=== PATIENT | female | born 1980 | race Asian ===

== ENCOUNTER 2017-11-14 11:30 | Inpatient (IN) | payer BC ==
[2017-11-14] MEDS ORDERED: ceFAZolin 2 GM in Premix Bag 1 BAG IV ONE (11:59)
[2017-11-14] MEDS ORDERED: Sodium Chloride 0.9% 2.5 ML Syringe FLUSH PRN (11:59)
[2017-11-14] MEDS ORDERED: Sodium Chloride 0.9% 10 ML Syringe FLUSH PRN (11:59)
[2017-11-14] MEDS ORDERED: Oxytocin/0.9 % Sodium Chloride 30 UNIT/500 ML BAG IV SCH (12:00)
[2017-11-14] MEDS ORDERED: Citric Acid/Sodium Citrate Solution 30 ML Cup PO SCH (12:00)
[2017-11-14] MEDS: Lactated Ringers 1,000 ML IV SCH ×2 (13:50→19:13)
[2017-11-14] MEDS ORDERED: Ampicillin 2 GM in Sodium Chloride 0.9% 100 ML IV ONE (15:30)
[2017-11-14] MEDS ORDERED: Ondansetron 4 MG/2 ML SDV ONE (16:14)
[2017-11-14] MEDS ORDERED: ePHEDrine 50 MG/ML SDV ONE (16:14)
[2017-11-14] MEDS ORDERED: Morphine PF 1 MG/ML Amp ONE (16:15)
[2017-11-14] MEDS ORDERED: Oxytocin/0.9 % Sodium Chloride 30 UNIT/500 ML BAG ONE (17:00)
[2017-11-14] MEDS ORDERED: ceFAZolin/Dextrose,Iso-Osmotic 2 GM/50 ML Duplex Bag IV ONE (18:00)
--- NOTE | 2017-11-14 18:24 | PCM.PREANE ---
Preanesthetic Assessment - Anesthesia/Transfusion/Family Hx Anesthesia History: No Prior Anesthesia Family History of Anesthesia Reaction: No Intubation History: Unknown - Review of Systems General: No Symptoms Pulmonary: No Symptoms Cardiovascular: No Symptoms Gastrointestinal: No Symptoms Neurological: No Symptoms Other: Reports: None - Physical Assessment Height: 1.6 m Weight: 69.853 kg ASA Class: 2 Mental Status: Alert & Oriented x3 Airway Class: Mallampati = 2 Dentition: Reports: Normal Dentition Thyro-Mental Finger Breadths: 3 Mouth Opening Finger Breadths: 3 ROM/Head Extension: Full Lungs: Clear to Auscultation, Normal Respiratory Effort Cardiovascular: Regular Rate, Regular Rhythm - Lab Values: Laboratory Last Values WBC 9.91 K/uL (4.0-11.0) 11/14/17 13:22 RBC 4.99 M/uL (4.30-5.90) 11/14/17 13:22 Hgb 13.7 g/dL (12.0-16.0) 11/14/17 13:22 Hct 40.5 % (36.0-46.0) 11/14/17 13:22 MCV 81.2 fL (80.0-98.0) 11/14/17 13:22 MCH 27.5 pg (27.0-32.0) 11/14/17 13:22 MCHC 33.8 g/dL (31.0-37.0) 11/14/17 13:22 RDW Std Deviation 43.5 fl (28.0-62.0) 11/14/17 13:22 RDW Coeff of Nathalia 15 % (11.0-15.0) 11/14/17 13:22 Plt Count 183 K/uL (150-400) 11/14/17 13:22 MPV 10.30 fL (7.40-12.00) 11/14/17 13:22 Nucleated RBC % 0.0 /100WBC 11/14/17 13:22 Nucleated RBCs # 0 K/uL 11/14/17 13:22 Blood Type O POSITIVE 11/14/17 13:22 Antibody Screen NEGATIVE 11/14/17 13:22 - Allergies Allergies/Adverse Reactions: Allergies Allergy/AdvReac Type Severity Reaction Status Date / Time No Known Allergies Allergy Verified 11/11/17 10:12 - Blood Blood Available: No - Anesthesia Plan Pre-Op Medication Ordered: None - Acknowledgements Anesthesia Type Planned: Spinal Pt an Appropriate Candidate for the Planned Anesthesia: Yes Alternatives and Risks of Anesthesia Discussed w Pt/Guardian: Yes Pt/Guardian Understands and Agrees with Anesthesia Plan: Yes PreAnesthesia Questionnaire - Past Health History Medical/Surgical History: Denies Medical/Surgical History [employer] VERTICAL History: Reports: - HOME MEDS Home Medications: Home Meds Cyanocobalamin (Vitamin B-12) [Vitamin B-12] 3,000 mcg PO DAILY 11/11/17 [ History] Doxylamine/Pyridoxine HCl [Diclegis Dr 10-10 mg Tablet] 2 tab PO BEDTIME [History] Omeprazole Magnesium [Prilosec Otc] 20 mg PO DAILY 11/11/17 [History] PNV95/Ferrous Fumarate/FA [ Vitamin Tablet] 1 tab PO DAILY 11/11/17 [ History] - CURRENT (IN HOUSE) MEDS Current Meds: Current Medications Citric Acid/Sodium Citrate (Bicitra Solution) 30 ml PO .ONCE [facility] Lactated Ringer's (Ringers, Lactated) 1,000 mls @ 500 mls/hr IV .BOLUS [facility] Last Admin: 11/14/17 13:50 Dose: 50 mls/hr Oxytocin/Sodium Chloride (Oxytocin 30 Unit/500 Ml-Ns) 30 unit in 500 mls @ 250 mls/hr IV TITRATE [facility] Sodium Chloride (Saline Flush) 10 ml FLUSH ASDIRECTED PRN PRN Reason: Keep Vein Open Sodium Chloride (Saline Flush) 2.5 ml FLUSH ASDIRECTED PRN PRN Reason: Keep Vein Open Discontinued Medications Cefazolin Sodium/Dextrose (Ancef) Confirm Administered Dose 2 gm IV .STK-MED ONE Stop: 11/14/17 18:01 Ephedrine Sulfate (Ephedrine Sulfate) Confirm Administered Dose 50 mg .ROUTE .STK-MED ONE Stop: 11/14/17 16:15 Cefazolin Sodium/Dextrose 2 gm (/ Premix) 50 mls @ 100 mls/hr IV ONETIME ONE Stop: 11/14/17 12:28 Ampicillin Sodium 2 gm/ Sodium (Chloride) 100 mls @ 200 mls/hr IV ONETIME ONE Stop: 11/14/17 15:59 Last Admin: 11/14/17 15:38 Dose: 200 mls/hr Cefazolin Sodium/Dextrose (Ancef) Confirm Administered Dose 50 mls @ as directed .ROUTE .STK-MED ONE Stop: 11/14/17 16:19 Oxytocin/Sodium Chloride (Oxytocin 30 Unit/500 Ml-Ns) Confirm Administered Dose 30 unit in 500 mls @ as directed .ROUTE .STK-MED ONE Stop: 11/14/17 17:01 Morphine Sulfate (Duramorph Pf) Confirm Administered Dose 1 mg .ROUTE .STK-MED ONE Stop: 11/14/17 16:16 Ondansetron HCl (Zofran) Confirm Administered Dose 4 mg .ROUTE .STK-MED ONE Stop: 11/14/17 16:15
[2017-11-14] MEDS ORDERED: Phenylephrine/Normal Saline 100 MCG/ML 10 ML Syringe ONE (19:29)
[2017-11-14] MEDS ORDERED: diphenhydrAMINE 50 MG/ML SDV IVPUSH PRN ×2 (20:16→21:52)
[2017-11-14] MEDS ORDERED: Nalbuphine 10 MG/1 ML Vial IVPUSH PRN (20:16)
[2017-11-14] MEDS ORDERED: Naloxone 0.4 MG/ML Syringe IVPUSH PRN (20:16)
[2017-11-14] MEDS ORDERED: fentaNYL 100 MCG/2 ML SDV IVPUSH PRN (20:17)
[2017-11-14] MEDS ORDERED: Acetaminophen/oxyCODONE 325-5 MG Tab PO PRN ×2 (20:17→21:52)
[2017-11-14] MEDS ORDERED: Oxytocin 10 Units/1 ML SDV ONE (20:54)
--- NOTE | 2017-11-14 21:29 | PCM.POSTAN ---
POST ANESTHESIA ASSESSMENT - MENTAL STATUS Mental Status: Alert, Oriented - RESPIRATORY Respiratory Status: Respiratory Rate WNL, Airway Patent, O2 Saturation Stable - CARDIOVASCULAR CV Status: Pulse Rate WNL, Blood Pressure Stable - GASTROINTESTINAL GI Status: No Symptoms - PAIN Pain Score: 0 - POST OP HYDRATION Hydration Status: Adequate & Stable
[2017-11-14] MEDS ORDERED: Ondansetron 4 MG/2 ML SDV IV PRN (21:52)
[2017-11-14] MEDS ORDERED: Lanolin 100% Cream 7 GM Tube TOP PRN (21:52)
[2017-11-14] MEDS ORDERED: Bisacodyl 10 MG Supp RECTAL PRN (21:52)
[2017-11-14] MEDS ORDERED: Ketorolac 30 MG/ML SDV IVPUSH SCH (22:00)
[2017-11-14] MEDS ORDERED: Lactated Ringers 1,000 ML IV SCH (22:00)
[2017-11-14] MEDS ORDERED: Acetaminophen 1,000 MG in Premix Bag 1 BAG IV ONE (22:10)
--- NOTE | 2017-11-14 22:29 | PCM.OPNOTE ---
- General Post-Op/Procedure Note Date of Surgery/Procedure: 11/14/17 Operative Procedure(s): Primary Lower transverse Findings: Uterus with subserosa hematoma 3cm X 2cm Live male delivered at 1954 7/9 Wt 3440g , 3VC noted. Uterus closed in 2 layers 4 figure of eight suture placed for hemostasis Surgicel placed around incison and bladder base for hemostasis Normal right and left fallopian tubes and ovaries Pre Op Diagnosis: 37 yo @ 37 weeks with third trimester bleeding , GBS positive , Declining vaginal delivery Post-Op Diagnosis: same Anesthesia Technique: Spinal Primary Surgeon: Amanda Estrada Anesthesia Provider: Madison Mckeon Pathology: Placenta Fluid Replacement, Intraop: 2,000 Output, Urine Amount: 150 EBL in mLs: 800 Condition: Good Free Text/Narrative:: Intake & Output 11/14/17 11/14/17 11/14/17 06:59 14:59 22:59 Intake Total 1000 Output Total 300 Balance 700
--- NOTE | 2017-11-15 09:41 | PCM.PNPP ---
<Marisa Bennett - Last Filed: 11/15/17 09:38> - General Info Date of Service: 11/15/17 Functional Status: Reports: Pain Controlled, Tolerating Diet, Ambulating, Urinating - Review of Systems General: Denies: Fever, Weakness Pulmonary: Denies: Shortness of Breath, Pleuritic Chest Pain, Cough Cardiovascular: Denies: Chest Pain, Palpitations, Dyspnea on Exertion Gastrointestinal: Denies: Abdominal Pain Genitourinary: Denies: Dysuria - General Info Date of Service: 11/15/17 - Patient Data Vital Signs - Most Recent: Last Vital Signs Temp 36.1 C 11/15/17 02:00 Pulse 87 11/15/17 02:00 Resp 20 11/15/17 02:00 BP 105/68 11/15/17 02:00 Pulse Ox 99 11/15/17 02:00 Weight - Most Recent: 69.853 kg I&O - Last 24 Hours: Intake & Output 11/14/17 11/15/17 11/15/17 22:59 06:59 14:59 Intake Total 3000 Output Total 450 250 Balance 2550 -250 Lab Results - Last 24 Hours: Laboratory Results - last 24 hr 11/14/17 11/14/17 11/14/17 Range/Units 13:22 13:22 19:55 WBC 9.91 (4.0-11.0) K/uL RBC 4.99 (4.30-5.90) M/uL Hgb 13.7 (12.0-16.0) g/dL Hct 40.5 (36.0-46.0) % MCV 81.2 (80.0-98.0) fL MCH 27.5 (27.0-32.0) pg MCHC 33.8 (31.0-37.0) g/dL RDW Std Deviation 43.5 (28.0-62.0) fl RDW Coeff of Nathalia 15 (11.0-15.0) % Plt Count 183 (150-400) K/uL MPV 10.30 (7.40-12.00) fL Nucleated RBC % 0.0 /100WBC Nucleated RBCs # 0 K/uL INR APTT (18.6-31.3) SEC Fibrinogen (215-411) mg/dL Cord ABG pH (7.18-7.38) Cord ABG Base Excess (-10--2) Cord VBG pH 7.351 (7.25-7.45) Cord VBG Base Excess -3 (-10--2) Blood Type O POSITIVE Antibody Screen NEGATIVE 11/14/17 11/14/17 11/14/17 Range/Units 19:55 22:28 22:28 WBC 13.36 H (4.0-11.0) K/uL RBC 4.25 L (4.30-5.90) M/uL Hgb 11.6 L (12.0-16.0) g/dL Hct 34.7 L (36.0-46.0) % MCV 81.6 (80.0-98.0) fL MCH 27.3 (27.0-32.0) pg MCHC 33.4 (31.0-37.0) g/dL RDW Std Deviation 44.4 (28.0-62.0) fl RDW Coeff of Nathalia 15 (11.0-15.0) % Plt Count 162 (150-400) K/uL MPV 10.00 (7.40-12.00) fL Nucleated RBC % 0.0 /100WBC Nucleated RBCs # 0 K/uL INR 0.92 APTT 28.6 (18.6-31.3) SEC Fibrinogen 521 H (215-411) mg/dL Cord ABG pH 7.283 (7.18-7.38) Cord ABG Base Excess -7 (-10--2) Cord VBG pH (7.25-7.45) Cord VBG Base Excess (-10--2) Blood Type Antibody Screen Med Orders - Current: Current Medications Bisacodyl (Dulcolax) 10 mg RECTAL .ONCE PRN PRN Reason: Constipation Citric Acid/Sodium Citrate (Bicitra Solution) 30 ml PO .ONCE [facility] Last Admin: 11/14/17 19:14 Dose: 30 ml Diphenhydramine HCl (Benadryl) 25 mg IVPUSH Q4H PRN PRN Reason: Itching Stop: 11/15/17 20:16 Last Admin: 11/14/17 21:32 Dose: 25 mg Diphenhydramine HCl (Benadryl) 25 mg IVPUSH Q6H PRN PRN Reason: Itching or Nausea Docusate Sodium (Colace) 100 mg PO BID [facility] Emollient Ointment (Lansinoh Hpa) 0 gm TOP ASDIRECTED PRN PRN Reason: Sore Nipples Fentanyl (Sublimaze) 25 - 50 mcg IVPUSH Q30M PRN PRN Reason: Pain Lactated Ringer's (Ringers, Lactated) 1,000 mls @ 500 mls/hr IV .BOLUS [facility] Last Admin: 11/14/17 19:13 Dose: 999 mls/hr Oxytocin/Sodium Chloride (Oxytocin 30 Unit/500 Ml-Ns) 30 unit in 500 mls @ 250 mls/hr IV TITRATE [facility] Lactated Ringer's (Ringers, Lactated) 1,000 mls @ 125 mls/hr IV ASDIRECTED [facility] Last Admin: 11/15/17 02:02 Dose: 125 mls/hr Acetaminophen 1,000 mg/ Premix 100 mls @ 400 mls/hr IV Q6H [facility] Ibuprofen (Motrin) 800 mg PO Q8H PRN PRN Reason: mild pain or fever Nalbuphine HCl (Nubain) 5 mg IVPUSH Q3H PRN PRN Reason: Pruritis Stop: 11/15/17 20:16 Naloxone HCl (Narcan) 0.1 mg IVPUSH ONETIME PRN PRN Reason: Other Stop: 11/15/17 20:17 Ondansetron HCl (Zofran) 4 mg IV Q4H PRN PRN Reason: Nausea/Vomiting Oxycodone/Acetaminophen (Percocet 325-5 Mg) 1 - 2 tab PO Q6H PRN PRN Reason: Pain Stop: 11/16/17 14:00 Oxycodone/Acetaminophen (Percocet 325-5 Mg) 1 tab PO Q4H PRN PRN Reason: Pain (moderate 4-6) Oxycodone/Acetaminophen (Percocet 325-5 Mg) 2 tab PO Q4H PRN PRN Reason: Pain (moderate 4-6) Sodium Chloride (Saline Flush) 10 ml FLUSH ASDIRECTED PRN PRN Reason: Keep Vein Open Sodium Chloride (Saline Flush) 2.5 ml FLUSH ASDIRECTED PRN PRN Reason: Keep Vein Open Discontinued Medications Cefazolin Sodium/Dextrose (Ancef) Confirm Administered Dose 2 gm IV .STK-MED ONE Stop: 11/14/17 18:01 Ephedrine Sulfate (Ephedrine Sulfate) Confirm Administered Dose 50 mg .ROUTE .STK-MED ONE Stop: 11/14/17 16:15 Cefazolin Sodium/Dextrose 2 gm (/ Premix) 50 mls @ 100 mls/hr IV ONETIME ONE Stop: 11/14/17 12:28 Ampicillin Sodium 2 gm/ Sodium (Chloride) 100 mls @ 200 mls/hr IV ONETIME ONE Stop: 11/14/17 15:59 Last Admin: 11/14/17 15:38 Dose: 200 mls/hr Cefazolin Sodium/Dextrose (Ancef) Confirm Administered Dose 50 mls @ as directed .ROUTE .STK-MED ONE Stop: 11/14/17 16:19 Oxytocin/Sodium Chloride (Oxytocin 30 Unit/500 Ml-Ns) Confirm Administered Dose 30 unit in 500 mls @ as directed .ROUTE .STK-MED ONE Stop: 11/14/17 17:01 Acetaminophen (Ofirmev) Confirm Administered Dose 100 mls @ as directed IV .STK- MED ONE Stop: 11/14/17 21:05 Acetaminophen 1,000 mg/ Premix 100 mls @ 400 mls/hr IV NOW ONE Stop: 11/14/17 22:24 Ketorolac Tromethamine (Toradol) 30 mg IVPUSH Q6H [facility] Stop: 11/15/17 22:01 Morphine Sulfate (Duramorph Pf) Confirm Administered Dose 1 mg .ROUTE .STK-MED ONE Stop: 11/14/17 16:16 Ondansetron HCl (Zofran) Confirm Administered Dose 4 mg .ROUTE .STK-MED ONE Stop: 11/14/17 16:15 Oxytocin (Pitocin) Confirm Administered Dose 20 unit .ROUTE .STK-MED ONE Stop: 11/14/17 20:55 Phenylephrine HCl (Phenylephrine In Ns 100 Mcg/Ml) Confirm Administered Dose 1 mg .ROUTE .STK-MED ONE Stop: 11/14/17 19:30 - Interaction Disposition, : Scalf in Room with Family Infant Interaction: Holding Infant Infant Feeding: Breastfed ; Nursed Well Support Person: - Recovery Exam Fundal Tone: Firm Fundal Level: At Umbilicus Fundal Placement: Midline Lochia Amount: Scant Lochia Color: Rubra/Red Perineum Description: Intact, Minimal Bruising/Swelling Episiotomy/Laceration: None Bladder Status: Indwelling Catheter in Place Urinary Elimination: Indwelling Catheter - Exam General: Alert, Oriented Neck: Supple Lungs: Clear to Auscultation, Normal Respiratory Effort Cardiovascular: Regular Rate, Regular Rhythm GI/Abdominal Exam: Normal Bowel Sounds, Soft, Non-Tender, No Distention Extremities: Normal Inspection, Pedal Edema (trace) - Problem List & Annotations (1) delivery delivered SNOMED Code(s): 104345525 Code(s): O82 - ENCOUNTER FOR DELIVERY WITHOUT INDICATION Status: Acute Current Visit: Yes - Problem List Review Problem List Initiated/Reviewed/Updated: Yes - Assessment Assessment:: POD# 1 s/p PLTCS due to bleeding from low-lying placenta. Minimal pain and lochia. Work on breast feeding today and anticipate discharge home tomorrow. - Plan Plan:: Continue routine post-op cares. <Clare Hernandez - Last Filed: 11/15/17 15:10> - Patient Data Vital Signs - Most Recent: Last Vital Signs Temp 36.1 C 11/15/17 02:00 Pulse 87 11/15/17 02:00 Resp 20 11/15/17 11:28 BP 105/68 11/15/17 02:00 Pulse Ox 99 11/15/17 02:00 I&O - Last 24 Hours: Intake & Output 11/15/17 11/15/17 11/15/17 06:59 14:59 22:59 Output Total 250 Balance -250 Lab Results - Last 24 Hours: Laboratory Results - last 24 hr 11/14/17 11/14/17 11/14/17 Range/Units 19:55 19:55 22:28 WBC 13.36 H (4.0-11.0) K/uL RBC 4.25 L (4.30-5.90) M/uL Hgb 11.6 L (12.0-16.0) g/dL Hct 34.7 L (36.0-46.0) % MCV 81.6 (80.0-98.0) fL MCH 27.3 (27.0-32.0) pg MCHC 33.4 (31.0-37.0) g/dL RDW Std Deviation 44.4 (28.0-62.0) fl RDW Coeff of Nathalia 15 (11.0-15.0) % Plt Count 162 (150-400) K/uL MPV 10.00 (7.40-12.00) fL Nucleated RBC % 0.0 /100WBC Nucleated RBCs # 0 K/uL INR APTT (18.6-31.3) SEC Fibrinogen (215-411) mg/dL Cord ABG pH 7.283 (7.18-7.38) Cord ABG Base Excess -7 (-10--2) Cord VBG pH 7.351 (7.25-7.45) Cord VBG Base Excess -3 (-10--2) 11/14/17 11/15/17 Range/Units 22:28 07:15 WBC (4.0-11.0) K/uL RBC (4.30-5.90) M/uL Hgb 10.0 L (12.0-16.0) g/dL Hct 29.7 L (36.0-46.0) % MCV (80.0-98.0) fL MCH (27.0-32.0) pg MCHC (31.0-37.0) g/dL RDW Std Deviation (28.0-62.0) fl RDW Coeff of Nathalia (11.0-15.0) % Plt Count (150-400) K/uL MPV (7.40-12.00) fL Nucleated RBC % /100WBC Nucleated RBCs # K/uL INR 0.92 APTT 28.6 (18.6-31.3) SEC Fibrinogen 521 H (215-411) mg/dL Cord ABG pH (7.18-7.38) Cord ABG Base Excess (-10--2) Cord VBG pH (7.25-7.45) Cord VBG Base Excess (-10--2) Med Orders - Current: Current Medications Bisacodyl (Dulcolax) 10 mg RECTAL .ONCE PRN PRN Reason: Constipation Citric Acid/Sodium Citrate (Bicitra Solution) 30 ml PO .ONCE [facility] Last Admin: 11/14/17 19:14 Dose: 30 ml Diphenhydramine HCl (Benadryl) 25 mg IVPUSH Q4H PRN PRN Reason: Itching Stop: 11/15/17 20:16 Last Admin: 11/14/17 21:32 Dose: 25 mg Diphenhydramine HCl (Benadryl) 25 mg IVPUSH Q6H PRN PRN Reason: Itching or Nausea Docusate Sodium (Colace) 100 mg PO BID [facility] Last Admin: 11/15/17 15:01 Dose: Not Given Emollient Ointment (Lansinoh Hpa) 0 gm TOP ASDIRECTED PRN PRN Reason: Sore Nipples Fentanyl (Sublimaze) 25 - 50 mcg IVPUSH Q30M PRN PRN Reason: Pain Lactated Ringer's (Ringers, Lactated) 1,000 mls @ 500 mls/hr IV .BOLUS [facility] Last Admin: 11/14/17 19:13 Dose: 999 mls/hr Oxytocin/Sodium Chloride (Oxytocin 30 Unit/500 Ml-Ns) 30 unit in 500 mls @ 250 mls/hr IV TITRATE [facility] Lactated Ringer's (Ringers, Lactated) 1,000 mls @ 125 mls/hr IV ASDIRECTED [facility] Last Admin: 11/15/17 02:02 Dose: 125 mls/hr Ibuprofen (Motrin) 800 mg PO Q8H PRN PRN Reason: mild pain or fever Nalbuphine HCl (Nubain) 5 mg IVPUSH Q3H PRN PRN Reason: Pruritis Stop: 11/15/17 20:16 Naloxone HCl (Narcan) 0.1 mg IVPUSH ONETIME PRN PRN Reason: Other Stop: 11/15/17 20:17 Ondansetron HCl (Zofran) 4 mg IV Q4H PRN PRN Reason: Nausea/Vomiting Oxycodone/Acetaminophen (Percocet 325-5 Mg) 1 - 2 tab PO Q6H PRN PRN Reason: Pain Stop: 11/16/17 14:00 Oxycodone/Acetaminophen (Percocet 325-5 Mg) 1 tab PO Q4H PRN PRN Reason: Pain (moderate 4-6) Oxycodone/Acetaminophen (Percocet 325-5 Mg) 2 tab PO Q4H PRN PRN Reason: Pain (moderate 4-6) Sodium Chloride (Saline Flush) 10 ml FLUSH ASDIRECTED PRN PRN Reason: Keep Vein Open Sodium Chloride (Saline Flush) 2.5 ml FLUSH ASDIRECTED PRN PRN Reason: Keep Vein Open Discontinued Medications Cefazolin Sodium/Dextrose (Ancef) Confirm Administered Dose 2 gm IV .STK-MED ONE Stop: 11/14/17 18:01 Ephedrine Sulfate (Ephedrine Sulfate) Confirm Administered Dose 50 mg .ROUTE .STK-MED ONE Stop: 11/14/17 16:15 Cefazolin Sodium/Dextrose 2 gm (/ Premix) 50 mls @ 100 mls/hr IV ONETIME ONE Stop: 11/14/17 12:28 Last Admin: 11/15/17 15:01 Dose: Not Given Ampicillin Sodium 2 gm/ Sodium (Chloride) 100 mls @ 200 mls/hr IV ONETIME ONE Stop: 11/14/17 15:59 Last Admin: 11/14/17 15:38 Dose: 200 mls/hr Cefazolin Sodium/Dextrose (Ancef) Confirm Administered Dose 50 mls @ as directed .ROUTE .STK-MED ONE Stop: 11/14/17 16:19 Oxytocin/Sodium Chloride (Oxytocin 30 Unit/500 Ml-Ns) Confirm Administered Dose 30 unit in 500 mls @ as directed .ROUTE .STK-MED ONE Stop: 11/14/17 17:01 Last Admin: 11/15/17 15:01 Dose: Not Given Acetaminophen (Ofirmev) Confirm Administered Dose 100 mls @ as directed IV .STK- MED ONE Stop: 11/14/17 21:05 Acetaminophen 1,000 mg/ Premix 100 mls @ 400 mls/hr IV NOW ONE Stop: 11/14/17 22:24 Last Admin: 11/15/17 15:02 Dose: Not Given Acetaminophen 1,000 mg/ Premix 100 mls @ 400 mls/hr IV Q6H [facility] Last Admin: 11/15/17 15:03 Dose: Not Given Ketorolac Tromethamine (Toradol) 30 mg IVPUSH Q6H [facility] Stop: 11/15/17 22:01 Last Admin: 11/15/17 15:02 Dose: Not Given Morphine Sulfate (Duramorph Pf) Confirm Administered Dose 1 mg .ROUTE .STK-MED ONE Stop: 11/14/17 16:16 Ondansetron HCl (Zofran) Confirm Administered Dose 4 mg .ROUTE .STK-MED ONE Stop: 11/14/17 16:15 Oxytocin (Pitocin) Confirm Administered Dose 20 unit .ROUTE .STK-MED ONE Stop: 11/14/17 20:55 Phenylephrine HCl (Phenylephrine In Ns 100 Mcg/Ml) Confirm Administered Dose 1 mg .ROUTE .STK-MED ONE Stop: 11/14/17 19:30 - Plan Plan:: Patient was seen and examined by me and I agree with above. Continue care.
--- NOTE | 2017-11-15 11:28 | PCM48HPAN ---
Post Anesthesia Note - EVALUATION WITHIN 48HRS OF ANESTHETIC Vital Signs in Normal Range: Yes Patient Participated in Evaluation: No (rn in room assured that she was doing well) Respiratory Function Stable: Yes Airway Patent: Yes Cardiovascular Function Stable: Yes Hydration Status Stable: Yes Pain Control Satisfactory: Yes Nausea and Vomiting Control Satisfactory: Yes Mental Status Recovered: Yes Resp Rate: 20
[2017-11-15] MEDS: Docusate Sodium 100 MG Cap PO SCH ×2 (15:01→20:59)
[2017-11-15] MEDS: Acetaminophen 1,000 MG in Premix Bag 1 BAG IV SCH ×2 (15:02→15:03)
[2017-11-15] MEDS: Acetaminophen/oxyCODONE 325-5 MG Tab PO PRN (21:00)
[2017-11-16] MEDS ORDERED: Ibuprofen 800 MG Tab PO PRN (04:00)
[2017-11-16] MEDS: Acetaminophen/oxyCODONE 325-5 MG Tab PO PRN ×2 (04:59→09:11)
--- NOTE | 2017-11-16 08:41 | PCM.PNPP ---
- General Info Date of Service: 11/16/17 Functional Status: Reports: Pain Controlled, Tolerating Diet, Ambulating, Urinating - Review of Systems General: Reports: No Symptoms HEENT: Reports: No Symptoms Pulmonary: Reports: No Symptoms Cardiovascular: Reports: No Symptoms Gastrointestinal: Reports: No Symptoms Genitourinary: Reports: No Symptoms Musculoskeletal: Reports: No Symptoms Skin: Reports: No Symptoms Neurological: Reports: No Symptoms Psychiatric: Reports: No Symptoms - Patient Data Vital Signs - Most Recent: Last Vital Signs Temp 37.0 C 11/15/17 20:00 Pulse 107 H 11/15/17 20:00 Resp 20 11/15/17 20:00 BP 118/65 11/15/17 20:00 Pulse Ox 95 11/15/17 20:00 Weight - Most Recent: 69.853 kg I&O - Last 24 Hours: Intake & Output 11/15/17 11/16/17 11/16/17 22:59 06:59 14:59 Intake Total 500 Output Total 1400 700 Balance -900 -700 Lab Results - Last 24 Hours: Laboratory Results - last 24 hr 11/15/17 Range/Units 07:15 Hgb 10.0 L (12.0-16.0) g/dL Hct 29.7 L (36.0-46.0) % Med Orders - Current: Current Medications Bisacodyl (Dulcolax) 10 mg RECTAL .ONCE PRN PRN Reason: Constipation Citric Acid/Sodium Citrate (Bicitra Solution) 30 ml PO .ONCE [facility] Last Admin: 11/14/17 19:14 Dose: 30 ml Diphenhydramine HCl (Benadryl) 25 mg IVPUSH Q6H PRN PRN Reason: Itching or Nausea Docusate Sodium (Colace) 100 mg PO BID [facility] Last Admin: 11/15/17 20:59 Dose: 100 mg Emollient Ointment (Lansinoh Hpa) 0 gm TOP ASDIRECTED PRN PRN Reason: Sore Nipples Fentanyl (Sublimaze) 25 - 50 mcg IVPUSH Q30M PRN PRN Reason: Pain Lactated Ringer's (Ringers, Lactated) 1,000 mls @ 500 mls/hr IV .BOLUS [facility] Last Admin: 11/14/17 19:13 Dose: 999 mls/hr Oxytocin/Sodium Chloride (Oxytocin 30 Unit/500 Ml-Ns) 30 unit in 500 mls @ 250 mls/hr IV TITRATE [facility] Lactated Ringer's (Ringers, Lactated) 1,000 mls @ 125 mls/hr IV ASDIRECTED [facility] Last Admin: 11/15/17 02:02 Dose: 125 mls/hr Ibuprofen (Motrin) 800 mg PO Q8H PRN PRN Reason: mild pain or fever Ondansetron HCl (Zofran) 4 mg IV Q4H PRN PRN Reason: Nausea/Vomiting Oxycodone/Acetaminophen (Percocet 325-5 Mg) 1 - 2 tab PO Q6H PRN PRN Reason: Pain Stop: 11/16/17 14:00 Last Admin: 11/15/17 17:08 Dose: 1 tab Oxycodone/Acetaminophen (Percocet 325-5 Mg) 1 tab PO Q4H PRN PRN Reason: Pain (moderate 4-6) Last Admin: 11/16/17 01:20 Dose: 1 tab Oxycodone/Acetaminophen (Percocet 325-5 Mg) 2 tab PO Q4H PRN PRN Reason: Pain (moderate 4-6) Last Admin: 11/16/17 04:59 Dose: 2 tab Sodium Chloride (Saline Flush) 10 ml FLUSH ASDIRECTED PRN PRN Reason: Keep Vein Open Sodium Chloride (Saline Flush) 2.5 ml FLUSH ASDIRECTED PRN PRN Reason: Keep Vein Open Discontinued Medications Cefazolin Sodium/Dextrose (Ancef) Confirm Administered Dose 2 gm IV .STK-MED ONE Stop: 11/14/17 18:01 Diphenhydramine HCl (Benadryl) 25 mg IVPUSH Q4H PRN PRN Reason: Itching Stop: 11/15/17 20:16 Last Admin: 11/14/17 21:32 Dose: 25 mg Ephedrine Sulfate (Ephedrine Sulfate) Confirm Administered Dose 50 mg .ROUTE .STK-MED ONE Stop: 11/14/17 16:15 Cefazolin Sodium/Dextrose 2 gm (/ Premix) 50 mls @ 100 mls/hr IV ONETIME ONE Stop: 11/14/17 12:28 Last Admin: 11/15/17 15:01 Dose: Not Given Ampicillin Sodium 2 gm/ Sodium (Chloride) 100 mls @ 200 mls/hr IV ONETIME ONE Stop: 11/14/17 15:59 Last Admin: 11/14/17 15:38 Dose: 200 mls/hr Cefazolin Sodium/Dextrose (Ancef) Confirm Administered Dose 50 mls @ as directed .ROUTE .STK-MED ONE Stop: 11/14/17 16:19 Oxytocin/Sodium Chloride (Oxytocin 30 Unit/500 Ml-Ns) Confirm Administered Dose 30 unit in 500 mls @ as directed .ROUTE .STK-MED ONE Stop: 11/14/17 17:01 Last Admin: 11/15/17 15:01 Dose: Not Given Acetaminophen (Ofirmev) Confirm Administered Dose 100 mls @ as directed IV .STK- MED ONE Stop: 11/14/17 21:05 Acetaminophen 1,000 mg/ Premix 100 mls @ 400 mls/hr IV NOW ONE Stop: 11/14/17 22:24 Last Admin: 11/15/17 15:02 Dose: Not Given Acetaminophen 1,000 mg/ Premix 100 mls @ 400 mls/hr IV Q6H MAYA Last Admin: 11/15/17 15:03 Dose: Not Given Ketorolac Tromethamine (Toradol) 30 mg IVPUSH Q6H MAYA Stop: 11/15/17 22:01 Last Admin: 11/15/17 15:02 Dose: Not Given Morphine Sulfate (Duramorph Pf) Confirm Administered Dose 1 mg .ROUTE .STK-MED ONE Stop: 11/14/17 16:16 Nalbuphine HCl (Nubain) 5 mg IVPUSH Q3H PRN PRN Reason: Pruritis Stop: 11/15/17 20:16 Naloxone HCl (Narcan) 0.1 mg IVPUSH ONETIME PRN PRN Reason: Other Stop: 11/15/17 20:17 Ondansetron HCl (Zofran) Confirm Administered Dose 4 mg .ROUTE .STK-MED ONE Stop: 11/14/17 16:15 Oxytocin (Pitocin) Confirm Administered Dose 20 unit .ROUTE .STK-MED ONE Stop: 11/14/17 20:55 Phenylephrine HCl (Phenylephrine In Ns 100 Mcg/Ml) Confirm Administered Dose 1 mg .ROUTE .STK-MED ONE Stop: 11/14/17 19:30 - Infant Interaction Infant Disposition, : in Room with Family Interaction: Holding Feeding: Breastfed Infant; Nursed Well Support Person: - Recovery Exam Fundal Tone: Firm Fundal Level: At Umbilicus Fundal Placement: Midline Lochia Amount: Small Lochia Color: Rubra/Red Perineum Description: Intact, Minimal Bruising/Swelling Episiotomy/Laceration: None Bladder Status: Indwelling Catheter in Place Urinary Elimination: Other (see below) Other Urinary Elimination, : Due to Void - Exam General: Alert, Oriented HEENT: Pupils Equal Neck: Supple Lungs: Clear to Auscultation, Normal Respiratory Effort Cardiovascular: Regular Rate, Regular Rhythm GI/Abdominal Exam: Normal Bowel Sounds, Soft, Non-Tender, No Organomegaly Extremities: Normal Inspection, Non-Tender, No Pedal Edema Skin: Warm, Dry, Intact Wound/Incisions: Healing Well Neurological: No New Focal Deficit Psy/Mental Status: Alert, Normal Affect, Normal Mood - Problem List Review Problem List Initiated/Reviewed/Updated: Yes - Assessment Assessment:: POD# 2 s/p PLTCS due to bleeding from low-lying placenta. Minimal pain and lochia. Stable would like to be discharged today.. - Plan Plan:: Discharge instructions reviewed, continue prenatals while .
[2017-11-16] MEDS: Docusate Sodium 100 MG Cap PO SCH (09:11)
--- NOTE | 2017-11-16 23:08 | OR ---
SURGEON: AMADO SMITH DATE OF PROCEDURE:11/14/2017 PROCEDURE: Primary lower transverse PREOPERATIVE DIAGNOSES: 1. A 37-year-old, 1, para 0, at 38 weeks 5 days with 3rd trimester bleeding. 2. History of low-lying placenta, declining trial of labor. 3. Group B streptococcus positive. POSTOPERATIVE DIAGNOSES: Primary lower transverse section secondary to third trimester bleeding, low-lying placenta. The patient declined a trial of labor. ANESTHESIA: Spinal. IV FLUIDS: 2000. URINE OUTPUT: 150. EBL: 800. PATHOLOGY: Placenta. COMPLICATIONS: None. FINDING: Uterus with subserosal hematoma about 2 cm x 2 cm. A live male was delivered at 1955 hours. score was 7 and 9. Weight was 3440 g. Three- vessel cord was noted. The patient had a couple of bleeding spots on the incision which was closed with 4 [id number] incisions. Surgicel was placed around the incision and bladder for hemostasis. Normal right and left fallopian tubes and ovaries. BRIEF HISTORY ABOUT THE PATIENT: The patient was low-risk patient. The patient was receiving care at [facility]. The patient presented to triage complaining of vaginal spotting and contractions. The patient also complained of decreased movement. Because of the historyof low-lying placenta, third trimester bleeding, patient wanted to proceed with elective section, as previously discussed with her provider , she declined an induction of labor. The patient understood risks, benefits, alternative and wanted to proceed with section. PROCEDURE: The patient was taken to the operating room where spinal anesthesia was performed without difficulty. The patient was prepared and draped in the dorsal supine position with a leftward tilt. A Pfannenstiel skin incision was made with a scalpel and carried down to the fascia with the Bovie. The fascia was incised and extended laterally. The fascia was then off the rectus muscles superiorly and inferiorly to the level of the pubic symphysis. The rectus muscle was in the midline down to the level of the pubic symphysis also. The peritoneum was then entered in bluntly and the peritoneum was extended to expose the bladder reflection. The Josué retractor was then placed in to give good visualization of the lower uterine segment. The bladder flap was then created. The uterine incision was then made and was extended upward and laterally manually. The infant's head was at the incision and fundal pressure was then applied. The incision had to be extended on the left side with the bandage scissors and fundal pressure was also then applied. The vacuum was placed on the infant's head and there were two pop-off noted, Infant head was delivered after 3rd vacuum attempt . After the head was delivered, the anterior and posterior shoulder was delivered followed by the infants body. The 's umbilical cord was clamped and cut. was handed over to the awaiting plastic tile setter. The placenta was then delivered with massage of the uterine fundus. The uterine incision was then closed in 2 layers. Some oozing was noted around the lower incision at 4 different points, [id number] incision was placed. After this was placed, a Surgicel was also placed and the gutters were then cleaned with moist laparotomy sponges. The uterus, tubes, and ovaries appeared normal after the procedure. The peritoneum was then closed with 2-0 Vicryl. The fascia was closed with 0 Vicryl in a continuous fashion. The subcutaneous fat was also closed and the skin was closed with 4-0 Monocryl on a [place] needle. All instrument and pad count were correct x2. The patient tolerated the procedure well and was taken to the recovery room in stable condition. BASIM THOMAS /[id number] MTDD
== END 2017-11-16 17:48 | disposition home or self-care (01) | DRG 540 ==
LOC: MW.OBCHECK 11:30 → MW.OB 11:37 → OBSVTOIN 11:59 → MW.OBCHECK 12:14 → MW.OB 19:59
PROVIDERS: ADMIT Obstetrics & Gynecology; ATTEND Obstetrics & Gynecology
PROC: 10D00Z1 Extraction of Products of Conception, Low, Open Approach (ICD-10-PCS; principal; 2017-11-14)
DX: O44.53 Low lying placenta with hemorrhage, third trimester (principal); O09.513 Supervision of elderly primigravida, third trimester; O99.824 Streptococcus B carrier state complicating childbirth; Z3A.38 38 weeks gestation of pregnancy; Z37.0 Single live birth
CPT/HCPCS: 36415; 59025; 82803; 85014; 85018; 85027; 85384; 85610; 85730; 86850; 86900; 86901; 88307; A9270-GY; J0290; J0690; J1200; J2274; J2405; J2590; J7030; J7120